=== PATIENT | female | born 1940 | race Caucasian/White ===

== ENCOUNTER 2021-03-18 18:30 | Emergency (ER) | payer MEDICARE, BC ==
[~2021-03-18] VITALS: Ht 170.2 cm; Wt 75.0 kg
[2021-03-18 23:03] VITALS: BP 110/70
== END 2021-03-18 23:04 | disposition home or self-care (01) ==
LOC: ER 18:31
DX: M71.21 Synovial cyst of popliteal space [Baker], right knee (principal); M79.89 Other specified soft tissue disorders
CPT/HCPCS: 93971; 99284